=== PATIENT | female | born 1940 | race Caucasian/White ===

== ENCOUNTER 2018-01-27 09:19 | Outpatient (CLI) | payer BC | END 2018-01-27 09:20 | disposition home or self-care (01) | LOC: BICMAMMO 09:19 | PROVIDERS: ATTEND Internal Medicine | DX: Z12.31 Encounter for screening mammogram for malignant neoplasm of breast (principal) | CPT/HCPCS: 77063; 77067 ==

== ENCOUNTER 2018-12-30 19:48 | Emergency (ER) | payer BC, MEDICARE ==
[2018-12-30 20:22] LABS: Bilirubin Negative (Negative); Blood, Urine Trace (Negative); Clarity Clear (Clear); Glucose, Urine (Dipstick) Negative (Negative); Leukocyte Trace (Negative); Nitrite Negative (Negative); Protein, Urine (Dipstick) Negative (Neg-Trace); Specific Gravity, Urine 1.015 (1.005-1.030); Urobilinogen 0.2 mg/dL (0.2-1.0)
[2018-12-30 20:25] LABS: Bacteria/HPF Rare-Few HPF (None Seen); Squamous Epithelial 0-3 HPF (0-3)
--- NOTE | 2018-12-30 20:53 | CT ---
CT ABDOMEN AND PELVIS WITHOUT CONTRAST STONE PROTOCOL 12/30/18 HISTORY: Left sided flank pain. COMPARISON: None. FINDINGS: The lung bases are clear. No pericardial effusion. Cholelithiasis is present. No evidence of cholecystitis. Multiple nonobstructing left sided renal calculi. There is a 5 x 6 mm calculus interpolar left kidney as well as a 3 mm calculus interpolar left kidney. No right sided renal calculi are appreciated. Evaluation for distal ureteral calculus is limited due to spray artifact from the right hip arthropla sty. There is hardware. No hydronephrosis nor is there hydroureter. No calculus is appreciated within the urinary bladder. The spleen and liver are unremarkable. The noncontrast evaluation of the pancreas and adrenal glands are unremarkable. The aortoiliac contour is nonaneurysmal. No retroperitoneal adenopathy. Moderate diverticular disease of the sigmoid colon without active current inflammation. Moderate degenerative changes of the lower lumbar spine. IMPRESSION: 1. Nonobstructive left sided renal calculi. No hydroureteronephrosis. 2. Cholelithiasis without cholecystitis. 3. No acute inflammatory process in the abdomen or pelvis. 4. Moderate diverticular disease sigmoid colon without active current inflammation. POS: HOME
== END 2018-12-30 21:05 | disposition home or self-care (01) ==
LOC: SCSER 19:48
DX: N30.00 Acute cystitis without hematuria (principal); E11.9 Type 2 diabetes mellitus without complications; Z79.84 Long term (current) use of oral hypoglycemic drugs; Z79.899 Other long term (current) drug therapy
CPT/HCPCS: 74176; 81003; 81015; 87086

== ENCOUNTER 2019-01-07 05:37 | Emergency (ER) | payer BC ==
[2019-01-07] MEDS ORDERED: HYDROcodone/Acetaminophen 5/325 mg Tablet ONE (06:14)
== END 2019-01-07 06:54 | disposition home or self-care (01) ==
LOC: ERS 05:37
DX: B02.9 Zoster without complications (principal); E11.9 Type 2 diabetes mellitus without complications; Z79.899 Other long term (current) drug therapy
CPT/HCPCS: 99283

== ENCOUNTER 2019-02-18 08:56 | Outpatient (CLI) | payer BC ==
--- NOTE | 2019-02-18 11:24 | MMO ---
Bilateral MAMMO Bilat Screen [facility]. CLINICAL HISTORY: Patient is 78 years old and is seen for screening. The patient has no family history of breast cancer. The patient has no personal history of cancer. VIEWS: The views performed were: bilateral craniocaudal with tomosynthesis; bilateral mediolateral oblique with tomosynthesis; and right mediolateral oblique. FILMS COMPARED: The present examination has been compared to prior imaging studies performed at [facility] on 12/05/2000, 12/08/2001, 12/15/2002, 12/21/2003, 01/01/2005, 01/01/2006, 01/01/2007, 01/02/2008, 01/09/2010, 01/10/2011, 01/14/2012, 01/14/2013, 01/15/2014, 01/17/2015, 01/20/2016, 01/23/2017 and 01/27/2018. MAMMOGRAM FINDINGS: There are scattered fibroglandular densities. There are no suspicious masses, suspicious calcifications, or new areas of architectural distortion. IMPRESSION: THERE IS NO MAMMOGRAPHIC EVIDENCE OF MALIGNANCY. A ROUTINE FOLLOW-UP MAMMOGRAM IN 1 YEAR IS RECOMMENDED. THE RESULTS OF THIS EXAM WERE SENT TO THE PATIENT. ACR BI-RADS Category 1 - Negative MAMMOGRAPHY NOTE: 1. A negative mammogram report should not delay a biopsy if a dominant of clinically suspicious mass is present. 2. Approximately 10% to 15% of breast cancers are not detected by mammography. 3. Adenosis and dense breasts may obscure an underlying neoplasm.
== END 2019-02-18 08:57 | disposition home or self-care (01) ==
LOC: BICMAMMO 08:56
PROVIDERS: ATTEND Internal Medicine
DX: Z12.31 Encounter for screening mammogram for malignant neoplasm of breast (principal)
CPT/HCPCS: 77063; 77067

== ENCOUNTER 2020-03-07 12:26 | Outpatient (CLI) | payer MEDICARE, BC ==
--- NOTE | 2020-03-07 13:23 | MMO ---
Bilateral MAMMO Bilat Screen [facility]. CLINICAL HISTORY: Patient is 79 years old and is seen for screening. The patient has no family history of breast cancer. The patient has no personal history of cancer. VIEWS: The views performed were: bilateral craniocaudal with tomosynthesis and bilateral mediolateral oblique with tomosynthesis. FILMS COMPARED: The present examination has been compared to prior imaging studies performed at [facility] on 01/20/2016, 01/23/2017, 01/27/2018 and 02/18/2019. This study has been interpreted with the assistance of computer-aided detection. MAMMOGRAM FINDINGS: There are scattered fibroglandular densities. There are no suspicious masses, suspicious calcifications, or new areas of architectural distortion. IMPRESSION: THERE IS NO MAMMOGRAPHIC EVIDENCE OF MALIGNANCY. A ROUTINE FOLLOW-UP MAMMOGRAM IN 1 YEAR IS RECOMMENDED. THE RESULTS OF THIS EXAM WERE SENT TO THE PATIENT. ACR BI-RADS Category 1 - Negative MAMMOGRAPHY NOTE: 1. A negative mammogram report should not delay a biopsy if a dominant of clinically suspicious mass is present. 2. Approximately 10% to 15% of breast cancers are not detected by mammography. 3. Adenosis and dense breasts may obscure an underlying neoplasm. Reported by: William MULLIGAN Electonically Signed: [id number]
== END 2020-03-07 12:27 | disposition home or self-care (01) ==
LOC: BICMAMMO 12:26
PROVIDERS: ATTEND Internal Medicine
DX: Z12.31 Encounter for screening mammogram for malignant neoplasm of breast (principal)
CPT/HCPCS: 77063; 77067

== ENCOUNTER 2021-03-09 07:57 | Outpatient (CLI) | payer MEDICARE, BC | END 2021-03-09 07:58 | disposition home or self-care (01) | LOC: BICMAMMO 07:57 | PROVIDERS: ATTEND Internal Medicine | DX: Z12.31 Encounter for screening mammogram for malignant neoplasm of breast (principal) | CPT/HCPCS: 77063; 77067 ==

== ENCOUNTER 2022-03-19 11:26 | Outpatient (CLI) | payer MEDICARE, BC | END 2022-03-19 11:27 | disposition home or self-care (01) | LOC: BICMAMMO 11:26 | PROVIDERS: ATTEND Internal Medicine | DX: Z12.31 Encounter for screening mammogram for malignant neoplasm of breast (principal) | CPT/HCPCS: 77063; 77067 ==